=== PATIENT | male | born 1975 | race African-American/Black ===

== ENCOUNTER 2019-01-20 14:38 | Emergency (ER) | payer MEDICAID, OTHER ==
[~2019-01-20] VITALS: Ht 188 cm; Wt 125.0 kg
[2019-01-20] MEDS ORDERED: SODIUM CHLORIDE 0.9% 1,000 ML IV ONE (17:13)
[2019-01-20 17:54] LABS: BASOPHILS % 1.9 % (0.0-2.0); EOSINOPHILS % 7.5 % (0.0-5.0); HEMATOCRIT. 43.1 % (42.0-52.0); HEMOGLOBIN. 15.1 g/dL (14.0-18.0); LYMPHOCYTES % 26.3 % (20.0-50.0); MEAN CORPUSCULAR VOLUME 102.5 fL (80.0-94.0); MEAN PLATELET VOLUME 8.3 fl (7.4-10.4); NEUTROPHILS % 57.3 % (40.0-76.0); PLATELET 63 x1000/uL (130-400); RED CELL DISTRIBUTION WIDTH 14.4 % (11.6-14.6)
[2019-01-20 17:56] LABS: CHLORIDE 109 mEq/L (98-107)
[2019-01-20 17:59] LABS: ETHANOL BLOOD 87 mg/dL
[2019-01-20 19:58] LABS: *AMPHETAMINES SCREEN URINE NEGATIVE (NEGATIVE); *BARBITURATES SCREEN URINE NEGATIVE (NEGATIVE); *BENZODIAZEPINES SCREEN URINE NEGATIVE (NEGATIVE); *COCAINE SCREEN URINE NEGATIVE (NEGATIVE)
[2019-01-20 19:59] LABS: METHADONE URINE SCREEN NEGATIVE (NEGATIVE); OPIATES URINE SCREEN NEGATIVE (NEGATIVE); PHENCYCLIDINE URINE SCREEN NEGATIVE (NEGATIVE)
[2019-01-20 20:00] LABS: CANNABINOID URINE SCREEN NEGATIVE (NEGATIVE)
[2019-01-20 23:10] VITALS: BP 131/80
== END 2019-01-20 23:11 | disposition left against medical advice (07) ==
LOC: ER 14:38
DX: F10.129 Alcohol abuse with intoxication, unspecified (principal); Y90.4 Blood alcohol level of 80-99 mg/100 ml; I10 Essential (primary) hypertension; Z91.5 Personal history of self-harm; Z73.3 Stress, not elsewhere classified; Z59.0 Homelessness
CPT/HCPCS: 36415; 80048; 80305; 80307; 80320; 80329; 85025; 99284; J7030; G0480

== ENCOUNTER 2022-07-12 17:37 | Emergency (ER) | payer MEDICARE, OTHER ==
[~2022-07-12] VITALS: Ht 185.4 cm; Wt 123.0 kg
[2022-07-12 17:54] VITALS: BP 153/95
[2022-07-12] MEDS ORDERED: SPIR50TA5 MT (18:00)
[2022-07-12] MEDS ORDERED: PROT40 MT (18:00)
[2022-07-12] MEDS ORDERED: RIFA550T MT (18:00)
[2022-07-12] MEDS ORDERED: FURO-151 MT (18:00)
[2022-07-12] MEDS ORDERED: MULT-1146 MT (18:00)
== END 2022-07-12 18:03 ==
LOC: ER 17:37
DX: Z76.0 Encounter for issue of repeat prescription (principal); Z13.9 Encounter for screening, unspecified
CPT/HCPCS: 99283

== ENCOUNTER 2022-10-18 04:05 | Emergency (ER) | payer MEDICAID ==
[~2022-10-18] VITALS: Ht 180.3 cm; Wt 124.0 kg
[~2022-10-18 04:05] MED LIST: ATEN-42 PO; CEPH500C2 PO; FOLI-43 PO; FURO-151 MT; LACT10SO3 PO; MULT-1146 MT; PANT40TA51 PO; PROT40 MT; RIFA550T MT; SPIR50TA5 MT
[2022-10-18] MEDS ORDERED: ADENOSINE 3 MG/ML 2ML VIAL IV ONE (04:15)
[2022-10-18] MEDS ORDERED: SODIUM CHLORIDE 0.9% 1,000 ML IV ONE (04:15)
[2022-10-18 04:25] LABS: BASOPHILS % 1.2 % (0.0-2.0); EOSINOPHILS % 6.9 % (0.0-5.0); HEMATOCRIT. 28.9 % (42.0-52.0); HEMOGLOBIN. 9.9 g/dL (14.0-18.0); LYMPHOCYTES % 21.6 % (20.0-50.0); MEAN CORPUSCULAR HEMOGLOBIN 35.1 pg (28.0-32.0); MEAN CORPUSCULAR VOLUME 102.6 fL (80.0-94.0); MEAN PLATELET VOLUME 7.8 fl (7.4-10.4); MONOCYTES % 5.3 % (2.0-8.0); RED BLOOD CELL COUNT 2.82 mill/uL (4.7-6.1); RED CELL DISTRIBUTION WIDTH 17.2 % (11.6-14.6)
[2022-10-18 04:32] LABS: CHLORIDE 110 mEq/L (98-107)
[2022-10-18 04:39] LABS: PLATELET 46 x1000/uL (130-400)
[2022-10-18 04:47] LABS: ETHANOL BLOOD < 10 mg/dL
[2022-10-18 05:08] LABS: *AMPHETAMINES SCREEN URINE NEGATIVE (NEGATIVE); *BARBITURATES SCREEN URINE NEGATIVE (NEGATIVE); *BENZODIAZEPINES SCREEN URINE NEGATIVE (NEGATIVE); *COCAINE SCREEN URINE NEGATIVE (NEGATIVE); CANNABINOID URINE SCREEN NEGATIVE (NEGATIVE); METHADONE URINE SCREEN NEGATIVE (NEGATIVE); OPIATES URINE SCREEN NEGATIVE (NEGATIVE); PHENCYCLIDINE URINE SCREEN NEGATIVE (NEGATIVE)
[2022-10-18] MEDS ORDERED: HYDROCODONE/ACETAMINOPHEN 5/325MG TABLET PO ONE (05:30)
[2022-10-18] MEDS ORDERED: IBUPROFEN 600MG TABLET PO ONE (05:45)
[2022-10-18 06:25] VITALS: BP 158/93
== END 2022-10-18 06:45 | disposition home or self-care (01) ==
LOC: ER 04:05
DX: I47.1 Supraventricular tachycardia (principal); K74.60 Unspecified cirrhosis of liver; Z98.890 Other specified postprocedural states
CPT/HCPCS: 36415; 71045; 80053; 80305; 80320; 82010; 83880; 84443; 84484; 85025; 93005; 96361; 96374; 99291; J0153; J7030; G0480